=== PATIENT | female | born 1995 | race Two or more races ===

== ENCOUNTER 2024-08-03 09:11 | Inpatient (IN) | payer OTHER ==
[~2024-08-03] VITALS: Ht 160 cm; Wt 47.6 kg
[2024-08-03 09:55] LABS: BASOPHILS # (AUTO) 0.1 K/uL (0.0-0.2); BASOPHILS % (AUTO) 0.7 % (0.0-2.0); EOSINOPHILS # (AUTO) 0.1 K/uL (0.0-0.7); EOSINOPHILS % (AUTO) 1.2 % (0.0-6.0); HEMATOCRIT 39 % (33-45); HEMOGLOBIN 13.6 g/dL (11.5-14.8); LYMPHOCYTES # (AUTO) 2.7 K/uL (0.8-4.8); LYMPHOCYTES % (AUTO) 35.7 % (20.0-44.0); MEAN CORPUSCULAR HEMOGLOBIN 32 PG (26.0-33.0); MEAN CORPUSCULAR HGB CONC 35 g/dl (31.0-36.0); MEAN CORPUSCULAR VOLUME 93 fL (82-100); MONOCYTES # (AUTO) 0.4 K/uL (0.1-1.30); MONOCYTES % (AUTO) 5.6 % (2.0-12.0); NEUTROPHILS # (AUTO) 4.3 K/uL (1.8-8.9); NEUTROPHILS % (AUTO) 56.8 % (43.0-81.0); PLATELET COUNT (AUTO) 322 K/uL (150-450); RED BLOOD CELL COUNT(AUTO) 4.21 MIL/uL (4.0-5.2); RED CELL DISTRIBUTION WIDTH 12.1 % (11.5-15.0); WHITE BLOOD COUNT (AUTO) 7.6 K/uL (4.3-11.0)
[2024-08-03] MEDS: MORPHINE SULFATE INJ 2 MG/ML DISP.SYRIN IV ONE ×2 (10:09→13:30)
[2024-08-03] MEDS: ONDANSETRON HCL/PF 4 MG/2 ML VIAL IVP ONE ×2 (10:09→13:30)
[2024-08-03 10:13] LABS: INR 1.03 (0.91-1.10); PARTIAL THROMBOPLASTIN TIME 25.9 SEC (24.3-34.3); PROTHROMBIN TIME 10.9 SECS (9.2-11.1)
[2024-08-03 10:19] LABS: ALBUMIN 3.8 g/dL (3.4-5.0); BILIRUBIN,DIRECT 0.1 mg/dL (0.0-0.2); BILIRUBIN,TOTAL 0.5 mg/dL (0.2-1.0); CALCIUM, SERUM 8.8 mg/dL (8.5-10.1); CREATININE 0.5 mg/dL (0.6-1.3); POTASSIUM 3.6 mmol/L (3.5-5.1); TOTAL PROTEIN, SERUM 7.9 g/dL (6.4-8.2)
[2024-08-03] MEDS ORDERED: IOHEXOL-300 100 ML VIAL IV ONE (10:28)
[2024-08-03] MEDS ORDERED: IV NS 0.9% 250 ML IV ONE (10:28)
[2024-08-03 10:53] LABS: PREGNANCY TEST URINE QUAL NEGATIVE (NEGATIVE)
[2024-08-03 10:54] LABS: APPEARANCE,URINE CLEAR (CLEAR); BILIRUBIN,URINE NEGATIVE (NEGATIVE); BLOOD, URINE NEGATIVE Ery/uL (NEGATIVE); COLOR,URINE YELLOW (YELLOW); KETONES,URINE NEGATIVE (NEGATIVE); LEUKOCYTE ESTERASE ,URINE NEGATIVE (NEGATIVE); NITRITE, URINE NEGATIVE (NEGATIVE); PH,URINE 6.5 (5.0-8.0); PROTEIN,URINE NEGATIVE (NEGATIVE); UGLUCOSE NEGATIVE (NEGATIVE); UROBILINOGEN,URINE 0.2 EU/dL (0.2)
[2024-08-03] MEDS ORDERED: KETOROLAC TROMETHAMINE 15 MG/ML VIAL ONE (10:59)
[2024-08-03] MEDS: KETOROLAC TROMETHAMINE 15 MG/ML VIAL IV ONE (11:00)
[2024-08-03] MEDS: PIPERACILLIN /TAZOBACTAM 3.375 G in IV D5W 50 ML IV ONE (13:30)
[2024-08-03] MEDS ORDERED: PIPERACI/TAZO 3.375GM/D5W 50ML PB IV ONE (14:16)
[2024-08-03] MEDS ORDERED: ONDANSETRON HCL/PF 4 MG/2 ML VIAL ONE ×2 (14:16→17:48)
[2024-08-03] MEDS ORDERED: MORPHINE SULFATE INJ 4 MG/ML DISP.SYRIN ONE (14:17)
[2024-08-03] MEDS ORDERED: ACETAMINOPHEN 650 MG/SUPP.RECT RC PRN (15:00)
[2024-08-03] MEDS ORDERED: Z GUARD REMEDY 4 OZ OINT TP PRN (15:00)
[2024-08-03] MEDS ORDERED: BUPIVACAINE 0.5 % PF 150 MG/30 ML VIAL ONE (15:38)
[2024-08-03] MEDS ORDERED: ANESTHESIA TRAY IN PYXIS 1 EA TRAY MC ONE (15:38)
[2024-08-03] MEDS ORDERED: LIDOCAINE 1%-EPI 1:100,000 20 ML VIAL ONE (15:38)
[2024-08-03] MEDS ORDERED: BACITRACIN ZINC OINT (15 GM) 15 GM TUBE TP ONE (15:38)
[2024-08-03 16:00] VITALS: BP 121/78; TEMP 98.4; O2SAT 100
[2024-08-03] MEDS ORDERED: HYDROMORPHONE 1 MG/1 ML DISP.SYRIN IV PRN (16:00)
[2024-08-03] MEDS ORDERED: FENTANYL PF 100MCG/2ML AMPUL ONE (16:01)
[2024-08-03] MEDS ORDERED: MIDAZOLAM HCL 2 MG/2ML VIAL ONE (16:01)
[2024-08-03] MEDS ORDERED: SEVOFLURANE 250 ML BOTTLE IH ONE (16:02)
[2024-08-03] MEDS ORDERED: ROCURONIUM BROMIDE 50 MG/5 ML ONE (16:02)
[2024-08-03] MEDS ORDERED: CELLULOSE,OXIDIZED 1 PKT EACH MC ONE (16:56)
[2024-08-03] MEDS: PANTOPRAZOLE 40 MG VIAL IV SCH (18:22)
[2024-08-03] MEDS: MORPHINE SULFATE INJ 2 MG/ML DISP.SYRIN IV PRN (18:23)
[2024-08-03 18:30] VITALS: BP 118/77; TEMP 97.5; O2SAT 100
[2024-08-03] MEDS: IV LR 1000 ML 1,000 ML IV PRN (18:49)
[2024-08-03] MEDS: GABAPENTIN 100 MG CAPSULE PO SCH (19:33)
[2024-08-03] MEDS: CELECOXIB 100 MG CAPSULE PO SCH (19:33)
[2024-08-03] MEDS: ACETAMINOPHEN 325 MG TABLET PO SCH (19:33)
[2024-08-03 20:00] VITALS: BP 105/78; TEMP 97.9; O2SAT 96
[2024-08-03] MEDS: PIPERACILLIN /TAZOBACTAM 3.375 G in IV D5W 50 ML IV SCH (20:05)
[2024-08-03] MEDS: HYDROMORPHONE 1 MG/1 ML DISP.SYRIN IV PRN (21:23)
[2024-08-04 06:30] LABS: BASOPHILS % (AUTO) 0.2 % (0.0-2.0); EOSINOPHILS % (AUTO) 0.1 % (0.0-6.0); HEMATOCRIT 35 % (33-45); HEMOGLOBIN 12.1 g/dL (11.5-14.8); LYMPHOCYTES # (AUTO) 1.5 K/uL (0.8-4.8); MEAN CORPUSCULAR HEMOGLOBIN 32 PG (26.0-33.0); MEAN CORPUSCULAR HGB CONC 35 g/dl (31.0-36.0); MEAN CORPUSCULAR VOLUME 93 fL (82-100); MONOCYTES # (AUTO) 0.6 K/uL (0.1-1.30); MONOCYTES % (AUTO) 6.2 % (2.0-12.0); NEUTROPHILS # (AUTO) 7.6 K/uL (1.8-8.9); NEUTROPHILS % (AUTO) 78.5 % (43.0-81.0); PLATELET COUNT (AUTO) 300 K/uL (150-450); RED BLOOD CELL COUNT(AUTO) 3.78 MIL/uL (4.0-5.2); RED CELL DISTRIBUTION WIDTH 11.9 % (11.5-15.0); WHITE BLOOD COUNT (AUTO) 9.7 K/uL (4.3-11.0)
[2024-08-04 06:33] LABS: CALCIUM, SERUM 8.4 mg/dL (8.5-10.1); CREATININE 0.6 mg/dL (0.6-1.3); MAGNESIUM 1.9 mg/dL (1.8-2.4); PHOSPHORUS 3.6 mg/dL (2.5-4.9); POTASSIUM 3.6 mmol/L (3.5-5.1)
[2024-08-04 08:00] VITALS: BP 97/61; TEMP 98.4; O2SAT 99
[2024-08-04] MEDS: MORPHINE SULFATE INJ 4 MG/ML DISP.SYRIN IV PRN (09:43)
[2024-08-04] MEDS: ONDANSETRON HCL/PF 4 MG/2 ML VIAL IVP PRN (09:52)
[2024-08-04] MEDS ORDERED: Magnesium 1GM/D5W 100ML PREMIX PIGGYBACK IV ONE ×2 (15:30)
[2024-08-04 16:00] VITALS: BP 104/66; TEMP 98.4; O2SAT 98
[2024-08-04] MEDS ORDERED: HYDROCODONE/APAP 5/325MG TABLET PO PRN (16:00)
[2024-08-04] MEDS: Magnesium 1GM/D5W 100ML PREMIX 100 ML IV SCH (16:59)
[2024-08-04 20:00] VITALS: BP 95/60; TEMP 98.2; O2SAT 99
[2024-08-05] MEDS: IV D5/ 0.9% NACL 1,000 ML IV PRN (07:22)
[2024-08-05] MEDS: PANTOPRAZOLE 40 MG TABLET.DR PO SCH (08:08)
[2024-08-05] MEDS ORDERED: ZOLP5TAB2 PO (10:20)
[2024-08-05] MEDS ORDERED: HYDR-3972 PO (10:20)
[2024-08-05] MEDS ORDERED: ACET325C7 PO (10:22)
[2024-08-05] MEDS ORDERED: ONDA4TAB5 PO (10:22)
== END 2024-08-05 11:30 | disposition home or self-care (01) | DRG 397 ==
LOC: ER 09:11 → MED 14:43
PROVIDERS: ADMIT Nurse Practitioner Acute Care; ATTEND Nurse Practitioner Acute Care
PROC: 0DTJ4ZZ Resection of Appendix, Percutaneous Endoscopic Approach (ICD-10-PCS; principal; 2024-08-03)
PROC: 0W3H4ZZ Control Bleeding in Retroperitoneum, Percutaneous Endoscopic Approach (ICD-10-PCS; 2024-08-03)
DX: K35.80 Unspecified acute appendicitis (principal); K66.1 Hemoperitoneum; E87.1 Hypo-osmolality and hyponatremia; E86.0 Dehydration; N83.201 Unspecified ovarian cyst, right side; Z98.890 Other specified postprocedural states; E86.1 Hypovolemia; Z87.09 Personal history of other diseases of the respiratory system; E83.42 Hypomagnesemia
CPT/HCPCS: 36415; 76856-TC; 80048-TC; 80076-TC; 83605-TC; 83690-TC; 83735-TC; 84100-TC; 84703-TC; 85025-TC; 85730-TC; 87040-TC; 97110-TC; 97116-TC; 97530-TC; A4223; A6403; G0378; J0330; J0690; J1100; J1171; J1885; J2250; J2270; J2405; J2470; J2543; J2704; J3010; J3475; J3490; J7030; J7042; J7050; J7060; J7120; Q9967